=== PATIENT | male | born 1965 | race Caucasian/White ===

== ENCOUNTER 2023-01-20 11:15 | Inpatient (IN) | payer BC, MEDICAID ==
[~2023-01-20] VITALS: Ht 165.1 cm; Wt 74.0 kg
[~2023-01-20 11:15] MED LIST: NICARDIPINE 100MCG/ML 10ML VIAL (CATH LAB) IV ONE; NITROGLYCERIN 50MCG/ML 10ML VIAL (CATH LAB) IV ONE
[2023-01-20 12:12] LABS: BASOPHILS % 0.6 % (0.0-2.0); EOSINOPHILS % 0.8 % (0.0-5.0); HEMOGLOBIN. 14.5 g/dL (14.0-18.0); LYMPHOCYTES % 22.1 % (20.0-50.0); MEAN CORPUSCULAR VOLUME 89.2 fL (80.0-94.0); MEAN PLATELET VOLUME 7.9 fl (7.4-10.4); MONOCYTES % 6.9 % (2.0-8.0); NEUTROPHILS % 69.6 % (40.0-76.0); PLATELET 255 x1000/uL (130-400); RED BLOOD CELL COUNT 4.82 mill/uL (4.7-6.1); RED CELL DISTRIBUTION WIDTH 13.7 % (11.6-14.6)
[2023-01-20] MEDS ORDERED: MIDAZOLAM HCL 2 MG/2 ML VIAL ONE (12:48)
[2023-01-20] MEDS ORDERED: LIDOCAINE HCL/PF 1% 10 MG/ML 5ML VIAL ONE (12:48)
[2023-01-20] MEDS ORDERED: FENTANYL CITRATE/PF 50MCG/ML 2ML VIAL ONE (12:48)
[2023-01-20] MEDS ORDERED: IODIXANOL 320MG/ML 100 ML BOTTLE IV ONE (12:48)
[2023-01-20] MEDS ORDERED: HEPARIN 1000 UNITS/ML 10ML ONE (12:48)
[2023-01-20 13:51] LABS: CHLORIDE 104 mEq/L (98-107)
[2023-01-20] MEDS ORDERED: ATROPINE SULFATE 1MG/10ML SYR IV PRN (14:00)
[2023-01-20] MEDS ORDERED: ACETAMINOPHEN 325MG TABLET PO PRN (14:00)
[2023-01-20] MEDS ORDERED: ASPIRIN 81MG TABLET PO SCH (14:00)
[2023-01-20 14:47] VITALS: BP 143/83
[2023-01-20 15:01] VITALS: BP 146/93
[2023-01-20 15:19] VITALS: BP 146/93
[2023-01-20] MEDS ORDERED: FOLI-43 PO (15:34)
[2023-01-20] MEDS ORDERED: AMLO5TAB88 PO (15:34)
[2023-01-20] MEDS ORDERED: ASPI-1406 PO (15:34)
[2023-01-20] MEDS ORDERED: GLIP10TA10 PO (15:34)
[2023-01-20] MEDS ORDERED: LISI20TA31 PO (15:34)
[2023-01-20] MEDS ORDERED: HEPARIN 25,000 UNITS PREMIX 250 ML IV SCH (17:00)
[2023-01-20] MEDS ORDERED: ONDANSETRON HCL 4MG/2ML INJ IV PRN (17:45)
[2023-01-20] MEDS ORDERED: LORAZEPAM 0.5MG TABLET PO PRN (17:45)
[2023-01-20] MEDS ORDERED: CLONIDINE 0.1MG TABLET PO PRN (17:45)
[2023-01-20] MEDS ORDERED: IPRATROPIUM/ALBUTEROL 0.5-3(2.5)MG/3ML NEB HHN PRN (17:45)
[2023-01-20] MEDS ORDERED: DOCUSATE SODIUM 100MG CAPSULE PO PRN (17:45)
[2023-01-20] MEDS ORDERED: HYDROCODONE/ACETAMINOPHEN 5/325MG TABLET PO PRN (17:45)
[2023-01-20] MEDS ORDERED: NALOXONE HCL 0.4MG/ML VIAL IV PRN (18:00)
[2023-01-20 20:30] VITALS: BP 148/87
[2023-01-20 23:20] VITALS: BP 143/76
== END 2023-01-21 00:30 | disposition short-term general hospital (02) | DRG 287 ==
LOC: ER 12:52 → EDBEDREQSVC 13:45 → EDBEDREQ 13:45 → EDBEDREQSVC 14:13 → EDBEDREQTM 14:13 → 3WST 14:36
PROVIDERS: ADMIT Specialist; ATTEND Specialist
PROC: 4A023N7 Measurement of Cardiac Sampling and Pressure, Left Heart, Percutaneous Approach (ICD-10-PCS; principal; 2023-01-20)
PROC: B2111ZZ Fluoroscopy of Multiple Coronary Arteries using Low Osmolar Contrast (ICD-10-PCS; 2023-01-20)
DX: R07.89 Other chest pain (principal); I25.10 Atherosclerotic heart disease of native coronary artery without angina pectoris; E11.9 Type 2 diabetes mellitus without complications; I10 Essential (primary) hypertension; E78.5 Hyperlipidemia, unspecified
CPT/HCPCS: 36415; 80048; 84484; 85025; 85347; 93005; 93458; 99285; C1769; C1893; J1644; J2250; J3010; J3490; Q9967

== ENCOUNTER 2023-11-08 16:31 | Emergency (ER) | payer BC ==
[~2023-11-08] VITALS: Ht 167.6 cm; Wt 79.0 kg
[~2023-11-08 16:31] MED LIST changes: +AMLO5TAB88 PO; +ASPI-1406 PO; +FOLI-43 PO; +GLIP10TA10 PO; +LISI20TA31 PO; -NICARDIPINE 100MCG/ML 10ML VIAL (CATH LAB) IV ONE; -NITROGLYCERIN 50MCG/ML 10ML VIAL (CATH LAB) IV ONE
[2023-11-08 16:51] VITALS: O2SAT 98
[2023-11-08] MEDS ORDERED: CEPH500C2 MT (18:38)
[2023-11-08 19:44] VITALS: BP 194/95; PULSE 107; RESP 16; TEMP 98.3
== END 2023-11-08 19:52 | disposition home or self-care (01) ==
LOC: ER 16:31
DX: J34.0 Abscess, furuncle and carbuncle of nose (principal); E11.9 Type 2 diabetes mellitus without complications; I10 Essential (primary) hypertension; Z98.890 Other specified postprocedural states
CPT/HCPCS: 93005; 99283